=== PATIENT | female | born 1950 ===

== ENCOUNTER 2017-11-19 07:18 | Emergency (ER) | payer MEDICARE, OTHER ==
[~2017-11-19] VITALS: Ht 160 cm; Wt 51.3 kg
[~2017-11-19 07:18] MED LIST: ALEN70; ALPR.5; ALPR1 PO; ARIP10 PO; ATOR10; ATOR40TA; BACL10; BIOTIN1 MG; CARI350; CHOL10002; CLON.5; CLON1; CLON1 PO; CODACE30 PO; CYCL10; DICL75ER; DIVALPROEX; DULO30 PO; FENO54; FENO67; FLUV50 PO; GABA100; GABA100 PO; GABA300; HYDACE5; HYDACE5 PO; HYDACE5325; IBUP400; IRON150C; LACT10SY PO; LAMO100 PO; LAVAP17G; LEVSOD100; LEVSOD50; LEVSOD50 PO; LEVSOD75; LIDO5TP; MELO7.5; OMEP10ER PO; OMEP20ER; ONDA4; ONDA4ODT MM; OXYACE5T PO; PARO10 PO; POTCHL20ER PO; PRAZOSIN HCL1 GM; PROACE100; PROACE100 PO; PROM25 PO; PROM25S PR; QUET200; QUET25 PO; QUET300; RANI150; RANI150 PO; RISE5 PO; SERAQUA250 ML PO; SUCR1 PO; SYNTHROID; Stool Soft50 MG/5 ML; THYR60; TRAACE; VENL75; VENL75ER; Zanaflex4 M1 PO; [UNRECOGNIZED DRUG - OTHER]; [UNRECOGNIZED DRUG - REMARK]; [UNRECOGNIZED DRUG - REMARK]; [UNRECOGNIZED DRUG - REMARK]; [UNRECOGNIZED DRUG - REMARK]
[2017-11-19] MEDS ORDERED: CHOL10002 (07:57)
[2017-11-19] MEDS ORDERED: METCAR500 PO (07:59)
[2017-11-19] MEDS ORDERED: CLON1 PO (08:11)
[2017-11-19] MEDS ORDERED: Lamictal150 MG PO (08:12)
[2017-11-19] MEDS ORDERED: PRAZ2 PO (08:15)
[2017-11-19] MEDS ORDERED: PROLIA60 MG/1 ML (08:15)
[2017-11-19] MEDS ORDERED: ATOR40TA PO (08:16)
[2017-11-20] MEDS ORDERED: Percocet 5-3251 EACH PO (09:05)
[2017-11-20] MEDS ORDERED: Robaxin500 MG PO (09:05)
== END 2017-11-19 08:41 | disposition home or self-care (01) ==
LOC: ER 07:18
DX: M43.6 Torticollis (principal); F31.9 Bipolar disorder, unspecified; F43.10 Post-traumatic stress disorder, unspecified; N18.2 Chronic kidney disease, stage 2 (mild); F32.9 Major depressive disorder, single episode, unspecified; Z88.8 Allergy status to other drugs, medicaments and biological substances; Z88.5 Allergy status to narcotic agent; Z79.899 Other long term (current) drug therapy
CPT/HCPCS: 96372; 99283; J1885

== ENCOUNTER 2017-11-20 08:13 | Emergency (ER) | payer MEDICARE, OTHER ==
[~2017-11-20] VITALS: Ht 160 cm; Wt 51.3 kg
[~2017-11-20 08:13] MED LIST changes: +ATOR40TA PO; +Lamictal150 MG PO; +METCAR500 PO; +PRAZ2 PO; +PROLIA60 MG/1 ML
[2017-11-20] MEDS ORDERED: Robaxin500 MG PO (09:05)
[2017-11-20] MEDS ORDERED: Percocet 5-3251 EACH PO (09:05)
== END 2017-11-20 09:52 | disposition home or self-care (01) ==
LOC: ER 08:13
DX: M43.6 Torticollis (principal); F31.9 Bipolar disorder, unspecified; N18.2 Chronic kidney disease, stage 2 (mild); F41.9 Anxiety disorder, unspecified; Z88.5 Allergy status to narcotic agent; Z88.8 Allergy status to other drugs, medicaments and biological substances; Z79.899 Other long term (current) drug therapy
CPT/HCPCS: 96372; 99284; J2550; J3010

== ENCOUNTER → 2018-02-12 | Outpatient (CLI) | payer MEDICARE, OTHER ==
[~2018-02-12] MED LIST changes: +Percocet 5-3251 EACH PO; +Robaxin500 MG PO
== END ==
LOC: LAB 16:14 → LAB SHORT 16:14
DX: N39.0 Urinary tract infection, site not specified (principal)
CPT/HCPCS: 87086

== ENCOUNTER → 2020-12-18 | Outpatient (CLI) | payer MEDICARE, OTHER | LOC: LAB SHORT 16:30 → LAB 16:30 | DX: R39.9 Unspecified symptoms and signs involving the genitourinary system (principal) | CPT/HCPCS: 87086 ==

== ENCOUNTER → 2021-11-16 | Outpatient (CLI) | payer MEDICARE, OTHER | LOC: LAB 13:40 → LAB SHORT 13:40 | DX: N89.8 Other specified noninflammatory disorders of vagina (principal) | CPT/HCPCS: 87070; 87205 ==

== ENCOUNTER → 2021-12-28 | Outpatient (CLI) | payer MEDICARE, OTHER | LOC: LAB SHORT 15:40 | DX: N89.8 Other specified noninflammatory disorders of vagina (principal) | CPT/HCPCS: 87070; 87077; 87186; 87205 ==